=== PATIENT | female | born 1950 | race Caucasian/White ===

== ENCOUNTER → 2018-02-27 | Outpatient (CLI) | payer MEDICARE | END | disposition home or self-care (01) | LOC: SURG 09:56 | PROVIDERS: ATTEND Anesthesiology Pain Medicine | DX: M54.89 Other dorsalgia (principal); G89.4 Chronic pain syndrome; F11.90 Opioid use, unspecified, uncomplicated; B02.29 Other postherpetic nervous system involvement; M79.2 Neuralgia and neuritis, unspecified; E78.4 Other hyperlipidemia; K21.9 Gastro-esophageal reflux disease without esophagitis; I10 Essential (primary) hypertension | CPT/HCPCS: 99214 ==